=== PATIENT | male | born 1955 | race Caucasian/White ===

== ENCOUNTER 2018-12-14 14:11 | Inpatient (IN) | payer OTHER ==
[2018-12-14] MEDS ORDERED: NA CHLORIDE 0.9% 1,000 ML ONE (14:28)
[2018-12-14 14:52] LABS: Absolute Lymphocytes (CBC) 1.3 K/uL (0.7-4.9); Basophils % 0.4 % (0-1.3); Hematocrit 22.6 % (39.6-49.0); Lymphocytes % 15.9 % (15.3-44.8); MPV 8.5 fL (7.6-11.3); RBC Red Blood Cell Count 2.35 M/uL (4.33-5.43)
[2018-12-14] MEDS ORDERED: WATER FOR INJ,STERILE 20 ML ONE (15:12)
[2018-12-14] MEDS ORDERED: PANTOPRAZOLE 40 MG INJ ONE (15:12)
[2018-12-14] MEDS ORDERED: CEFTRIAXONE/SWI 1gm 1 GM/10 ML SYR ONE (15:12)
[2018-12-14] MEDS: PANTOPRAZOLE INJ 80 MG in NA CHLORIDE 0.9% 250 ML IV SCH (16:00)
--- NOTE | 2018-12-14 16:16 | EDPHYS ---
Physician Documentation [facility] Name: Baldemar Rossi Age: 63 yrs Sex: Male : 1955 Arrival Date: 12/14/2018 Time: 14:14 Bed 30 Private MD: ED Physician Jacquelyn Chaparro HPI: 12/14 16:13 This 63 yrs old Male presents to ER via Ambulatory with complaints of ma2 Black/Tarry Stools, Shortness Of Breath. 16:13 The patient has shortness of breath at rest. Onset: The symptoms/episode began/occurred ma2 gradually, 1 day(s) ago. Associated signs and symptoms: Pertinent negatives: productive cough, diaphoresis, fever, nausea, numbness in extremities. Severity of symptoms: At their worst the symptoms were mild in the emergency department the symptoms are unchanged. The patient has not experienced similar symptoms in the past. Historical: - Allergies: 14:22 No Known Allergies; la1 - PMHx: 14:22 None; la1 - Immunization history:: Adult Immunizations up to date. - Social history:: Smoking status: Patient/guardian denies using tobacco, Patient/guardian denies using alcohol, street drugs, The patient lives with family. - Ebola Screening: : No symptoms or risks identified at this time. - Family history:: not pertinent. ROS: 16:13 Constitutional: Negative for fever, chills, and weight loss. ma2 16:13 All other systems are negative. Exam: 16:13 Constitutional: This is a well developed, well nourished patient who is awake, alert, ma2 and in no acute distress. Neck: Trachea midline, no thyromegaly or masses palpated, and no cervical lymphadenopathy. Supple, full range of motion without nuchal rigidity, or vertebral point tenderness. No Meningismus. Chest/axilla: Normal chest wall appearance and motion. Nontender with no deformity. No lesions are appreciated. Cardiovascular: Regular rate and rhythm with a normal S1 and S2. No gallops, murmurs, or rubs. Normal PMI, no JVD. No pulse deficits. Respiratory: Lungs have equal breath sounds bilaterally, clear to auscultation and percussion. No rales, rhonchi or wheezes noted. No increased work of breathing, no retractions or nasal flaring. Abdomen/GI: Soft, non-tender, with normal bowel sounds. No distension or tympany. No guarding or rebound. No evidence of tenderness throughout. MS/ Extremity: Pulses equal, no cyanosis. Neurovascular intact. Full, normal range of motion. Vital Signs: 14:22 BP 158 / 100; Pulse 91; Resp 16; Temp 98.4; Pulse Ox 100% on R/A; Weight 64.86 kg; la1 Height 5 ft. 9 in. (175.26 cm); 15:47 BP 168 / 84; Pulse 78; Resp 17 S; Pulse Ox 100% on R/A; ca1 16:50 BP 157 / 78; Pulse 73; Resp 17 S; Pulse Ox 100% on R/A; ca1 17:52 BP 149 / 83; Pulse 84; Resp 17 S; Pulse Ox 100% on R/A; ca1 18:44 BP 138 / 69; Pulse 75; Resp 17 S; Pulse Ox 100% on R/A; ca1 20:17 BP 141 / 77; Pulse 77; Resp 16 S; Pulse Ox 100% on R/A; ca1 21:19 BP 146 / 79; Pulse 73; Resp 15 S; Temp 98.4(O); Pulse Ox 100% on R/A; ca1 14:22 Body Mass Index 21.12 (64.86 kg, 175.26 cm) la1 MDM: 14:26 Patient medically screened. ma2 16:13 Differential diagnosis: gi bleed, upper vs lower. Antibiotic administration: The hi2 patient is discharged and will get outpatient antibiotics. Data reviewed: vital signs, nurses notes. Counseling: I had a detailed discussion with the patient and/or guardian regarding: the historical points, exam findings, and any diagnostic results supporting the discharge/admit diagnosis, the presence of at least one elevated blood pressure reading (>120/80) during this emergency department visit, the need for outpatient follow up. ED course: discussed with dr. whyte and accepted by dr. de la cruz will admit to icu . 12/14 14:27 Order name: Basic Metabolic Panel hi2 12/14 14:27 Order name: CBC with Diff; Complete Time: 14:57 hi2 12/14 14:27 Order name: Creatinine for Radiology; Complete Time: 15:34 [facility] 12/14 14:27 Order name: Hepatic Function hi2 12/14 14:27 Order name: Lipase hi2 12/14 14:27 Order name: Occult Blood hi2 12/14 14:34 Order name: Type And Screen [facility] 12/14 15:27 Order name: Packed RBC Leukored [facility] 12/14 16:19 Order name: ABO/RH no charge [facility] 12/14 19:40 Order name: CT [facility] 12/14 20:04 Order name: Hemoglobin 12/14 20:04 Order name: Hematocrit 12/14 20:25 Order name: Hemoglobin [facility] 12/14 20:25 Order name: Hematocrit [facility] 12/14 14:27 Order name: IV Saline Lock; Complete Time: 14:46 hi2 12/14 14:27 Order name: Labs collected and sent; Complete Time: 14:46 [facility] 12/14 14:48 Order name: Labs - recollect needed; Complete Time: 15:05 bd Administered Medications: 14:46 Drug: NS 0.9% 1000 ml Route: IV; Rate: 1 bolus; Site: right antecubital; ca1 16:04 Follow up: Response: No adverse reaction; IV Status: Completed infusion ca1 15:25 Drug: Rocephin 1 grams Route: IV; Rate: calculated rate; Site: right antecubital; ca1 16:04 Follow up: Response: No adverse reaction; IV Status: Completed infusion ca1 15:25 Drug: Pantoprazole 80 mg Route: IVP; Site: right antecubital; ca1 16:04 Follow up: Response: No adverse reaction ca1 16:03 Drug: Pantoprazole 8 mg/hr Route: IV; Rate: 25 ml/hr; Site: right antecubital; ca1 17:20 Follow up: IV Status: Infusion continued upon admission ca1 Disposition: 16:15 Critical Care:. ma2 Disposition: 12/14/18 16:15 Hospitalization ordered by Petra De La Cruz for Inpatient Admission. Preliminary diagnosis is Gastrointestinal hemorrhage, unspecified. - Bed requested for Telemetry/MedSurg (Inpatient). - Status is Inpatient Admission. ca1 - Condition is Stable. - Problem is new. - Symptoms are unchanged. UTI on Admission? No Critical care time excluding procedures: 16:15 Critical care time: Bedside Care: 20 minutes, Consultation: 10 minutes, Family ma2 Intervention: 5 minutes. Total time: 35 minutes Signatures: Dispatcher [employer] Priyanka Rene Bib Coats RN RN la1 Clau Diez, RN RN cg Jacquelyn Chaparro MD MD ma2 Swati Hunter RN RN ca1 Corrections: (The following items were deleted from the chart) 18:47 16:15 Hospitalization Ordered by Petra De La Cruz MD for Inpatient Admission. Preliminary bd diagnosis is Gastrointestinal hemorrhage, unspecified. Bed requested for Intensive Care Unit. Status is Inpatient Admission. Condition is Critical. Problem is new. Symptoms are unchanged. UTI on Admission? No. ma2 21:01 18:47 12/14/2018 16:15 Hospitalization Ordered by Petra De La Cruz MD for Inpatient cg Admission. Preliminary diagnosis is Gastrointestinal hemorrhage, unspecified. Bed requested for [facility] ER HOLD. Status is Inpatient Admission. Condition is Critical. Problem is new. Symptoms are unchanged. UTI on Admission? No. bd 21:41 21:01 12/14/2018 16:15 Hospitalization Ordered by Petra De La Cruz MD for Inpatient ca1 Admission. Preliminary diagnosis is Gastrointestinal hemorrhage, unspecified. Bed requested for Telemetry/MedSurg (Inpatient). Status is Inpatient Admission. Condition is Stable. Problem is new. Symptoms are unchanged. UTI on Admission? No. cg
--- NOTE | 2018-12-14 16:16 | ER ---
Nurse's Notes [facility] Name: Baldemar Rossi Age: 63 yrs Sex: Male : 1955 Arrival Date: 12/14/2018 Time: 14:14 Bed 30 Private MD: Diagnosis: Gastrointestinal hemorrhage, unspecified Presentation: 12/14 14:21 Presenting complaint: Patient states: Dark tarry stools x 3 days, syncopal episode last la1 night with loss of urinary continence. Pt is daily drinker, averages about eight beers per day. Transition of care: patient was not received from another setting of care. Onset of symptoms was December 14, 2018. Risk Assessment: Do you want to hurt yourself or someone else? Patient reports no desire to harm self or others. Initial Sepsis Screen: Does the patient meet any 2 criteria? No. Patient's initial sepsis screen is negative. Does the patient have a suspected source of infection? No. Patient's initial sepsis screen is negative. Care prior to arrival: None. 14:21 Method Of Arrival: Ambulatory la1 14:21 Acuity: SKYE 2 la1 Triage Assessment: 14:54 Respiratory: ca1 14:54 Respiratory: Onset: The symptoms/episode began/occurred. ca1 Historical: - Allergies: 14:22 No Known Allergies; la1 - PMHx: 14:22 None; la1 - Immunization history:: Adult Immunizations up to date. - Social history:: Smoking status: Patient/guardian denies using tobacco, Patient/guardian denies using alcohol, street drugs, The patient lives with family. - Ebola Screening: : No symptoms or risks identified at this time. - Family history:: not pertinent. Screenin:40 Abuse screen: Denies threats or abuse. Denies injuries from another. Nutritional ca1 screening: No deficits noted. Tuberculosis screening: No symptoms or risk factors identified. Fall Risk IV access (20 points). Assessment: 14:40 General: Appears in no apparent distress. comfortable, Behavior is calm, cooperative, ca1 appropriate for age. Pain: Denies pain. Neuro: Level of Consciousness is awake, alert, obeys commands, Oriented to person, place, time, situation, Appropriate for age. Cardiovascular: Heart tones S1 S2 present Capillary refill < 3 seconds Patient's skin is warm and dry. Pulses are all present. Rhythm is regular. Respiratory: Reports shortness of breath just one time Airway is patent Respiratory effort is even, unlabored, Respiratory pattern is regular, symmetrical, Breath sounds are clear bilaterally. GI: Abdomen is flat, non-distended, Bowel sounds present X 4 quads. Abd is soft and non tender X 4 quads. Reports black tarry stools since 3 days ago. : No deficits noted. No signs and/or symptoms were reported regarding the genitourinary system. EENT: No deficits noted. No signs and/or symptoms were reported regarding the EENT system. Derm: Skin is intact, is healthy with good turgor, Skin is pink, warm \T\ dry. Musculoskeletal: Circulation, motion, and sensation intact. Capillary refill < 3 seconds, Range of motion: intact in all extremities. 15:47 Reassessment: Patient appears in no apparent distress at this time. Patient and/or ca1 family updated on plan of care and expected duration. Pain level reassessed. Patient is alert, oriented x 3, equal unlabored respirations, skin warm/dry/pink. Instructed on NPO. 16:50 Reassessment: Patient appears in no apparent distress at this time. Patient and/or ca1 family updated on plan of care and expected duration. Pain level reassessed. Patient is alert, oriented x 3, equal unlabored respirations, skin warm/dry/pink. 17:52 Reassessment: Patient appears in no apparent distress at this time. Patient and/or ca1 family updated on plan of care and expected duration. Pain level reassessed. Patient is alert, oriented x 3, equal unlabored respirations, skin warm/dry/pink. 18:44 Reassessment: Patient appears in no apparent distress at this time. Patient is alert, ca1 oriented x 3, equal unlabored respirations, skin warm/dry/pink. Awaiting room assignment. 19:43 Reassessment: Patient appears in no apparent distress at this time. Patient and/or ca1 family updated on plan of care and expected duration. Pain level reassessed. Patient is alert, oriented x 3, equal unlabored respirations, skin warm/dry/pink. 20:14 Reassessment: No ICU beds available. For re-evaluation with night hospitalist if pt can ca1 go to [facility] floor. H\T\H drawn and sent to lab per DR. Bridges's order. 21:19 Reassessment: Patient appears in no apparent distress at this time. Patient is alert, ca1 oriented x 3, equal unlabored respirations, skin warm/dry/pink. called report to ARTURO Corrigan. Vital Signs: 14:22 BP 158 / 100; Pulse 91; Resp 16; Temp 98.4; Pulse Ox 100% on R/A; Weight 64.86 kg; la1 Height 5 ft. 9 in. (175.26 cm); 15:47 BP 168 / 84; Pulse 78; Resp 17 S; Pulse Ox 100% on R/A; ca1 16:50 BP 157 / 78; Pulse 73; Resp 17 S; Pulse Ox 100% on R/A; ca1 17:52 BP 149 / 83; Pulse 84; Resp 17 S; Pulse Ox 100% on R/A; ca1 18:44 BP 138 / 69; Pulse 75; Resp 17 S; Pulse Ox 100% on R/A; ca1 20:17 BP 141 / 77; Pulse 77; Resp 16 S; Pulse Ox 100% on R/A; ca1 21:19 BP 146 / 79; Pulse 73; Resp 15 S; Temp 98.4(O); Pulse Ox 100% on R/A; ca1 14:22 Body Mass Index 21.12 (64.86 kg, 175.26 cm) la1 ED Course: 14:14 Patient arrived in ED. mr 14:22 Triage completed. la1 14:23 Arm band placed on right wrist. la1 14:25 Jacquelyn Chaparro MD is Attending Physician. ma2 14:27 Swati Hunter, ARTURO is Primary Nurse. ca1 14:40 Patient has correct armband on for positive identification. Placed in gown. Bed in low ca1 position. Call light in reach. Side rails up X 1. Pulse ox on. NIBP on. Warm blanket given. 14:46 No provider procedures requiring assistance completed. Initial lab(s) drawn, by me, ca1 sent to lab. Inserted saline lock: 20 gauge in right antecubital area, using aseptic technique. Blood collected. 15:05 Lab(s) recollected, by me, sent to lab. ca1 15:26 Inserted saline lock: 18 gauge in left forearm, using aseptic technique. Blood ca1 collected. 15:35 Repeat lab(s) drawn. by me, sent to lab. jp3 15:35 Type And Screen Sent. jp3 16:14 Petra De La Cruz MD is Hospitalizing Provider. ma2 17:20 Patient admitted, IV remains in place. ca1 20:12 Hemoglobin Sent. ca1 20:12 Hematocrit Sent. ca1 Administered Medications: 14:46 Drug: NS 0.9% 1000 ml Route: IV; Rate: 1 bolus; Site: right antecubital; ca1 16:04 Follow up: Response: No adverse reaction; IV Status: Completed infusion ca1 15:25 Drug: Rocephin 1 grams Route: IV; Rate: calculated rate; Site: right antecubital; ca1 16:04 Follow up: Response: No adverse reaction; IV Status: Completed infusion ca1 15:25 Drug: Pantoprazole 80 mg Route: IVP; Site: right antecubital; ca1 16:04 Follow up: Response: No adverse reaction ca1 16:03 Drug: Pantoprazole 8 mg/hr Route: IV; Rate: 25 ml/hr; Site: right antecubital; ca1 17:20 Follow up: IV Status: Infusion continued upon admission ca1 Outcome: 16:15 Decision to Hospitalize by Provider. ma2 21:20 Admitted to Med/surg accompanied by tech, via stretcher, room 217, on monitor, Report ca1 called to Meenu Hernandez RN 21:20 Condition: stable 21:20 Instructed on the need for admit. 21:41 Patient left the ED. ca1 Signatures: Mary Diaz Lee, RN RN la1 Jacquelyn Chaparro MD MD ma2 Gerardo Wen jp3 Swati Hunter RN RN ca1 Corrections: (The following items were deleted from the chart) 14:23 14:21 Presenting complaint: Patient states: Dark tarry stools x 3 days, syncopal la1 episode last night with loss of urinary continence. la1 18:44 15:47 Reassessment: Patient appears in no apparent distress at this time. Patient ca1 and/or family updated on plan of care and expected duration. Pain level reassessed. Patient is alert, oriented x 3, equal unlabored respirations, skin warm/dry/pink. ca1
[2018-12-14 18:02] LABS: ALT/SGPT 22 U/L (12-78); AST/SGOT 26 U/L (15-37); Albumin 3.4 g/dL (3.4-5.0); Alkaline Phosphatase 63 U/L (45-117); BUN Blood Urea Nitrogen 14 mg/dL (7-18); Bicarbonate 25 mmol/L (21-32); Bilirubin Direct 0.1 mg/dL (0-0.2); Bilirubin Total 0.5 mg/dL (0.2-1.0); Glucose Level 103 mg/dL (74-106); Lipase 106 U/L (73-393); Potassium 3.7 mmol/L (3.5-5.1); Protein, Total 6.6 g/dL (6.4-8.2); Sodium Level 138 mmol/L (136-145)
--- NOTE | 2018-12-14 18:22 | P.HP ---
Certification for Inpatient Patient admitted to: Inpatient With expected LOS: >2 Midnights Practitioner: I am a practitioner with admitting privileges, knowledge of patient current condition, hospital course, and medical plan of care. Services: Services provided to patient in accordance with Admission requirements found in Title 42 Section 412.3 of the Code of Federal Regulations Patient History Date of Service: 12/14/18 Primary Care Provider: None Reason for admission: Black tarry stools History of Present Illness: This is a 63-year-old male with no oral past medical history who presented to the emergency room with complaints of black tarry stools for the past 3 days and feeling pale. Patient at bedside, patient has not seen a physician since 1991 and has not been really diagnosed with any other medical problems. He does not take any medications at home. stated that for the past 3 days or so, he has been complaining of black story stools. He has also been looking pale. Yesterday he lost his balance and he fell and he hit his head. said that his eyes kind of rolled back and he urinated on himself. Patient says he does remember the falling but states that he could not get up because he could not really breathe. He laid there for a while, he felt better and that he was able to pick himself up. Initially, they thought that this is just gastroenteritis because his granddaughter has been sick with diarrhea. But because of the fall and him feeling worse, He then told his and his forced him to come to the emergency room. The also endorses that patient has been choking on his food a lot more recently. He does have a history of heavy alcohol use. He states he drinks about 8 beers daily and more than that on his states he has been doing this for most this life. He used to be and even heavier drinker up until a few years ago. The states that his last drink was about 1 day ago and he has had only about 9 years the past 3 days. In the ER, blood pressure was 158/100, heart rate of 91, respirations of 16, satting 100% on room air with a BMI of 21.12. His labs remarkable for a hemoglobin of 8. His other labs were fairly unremarkable. He received IV fluids, Rocephin and IV Protonix drip in the ER. Dr. sarath was contacted from the emergency room and will see the patient, per ER doc At the time of my exam, patient was alert oriented x3, in no acute distress and hemodynamically stable. Home medications list reviewed: Yes - Past Medical/Surgical History Has patient received pneumonia vaccine in the past: No Diabetic: No Past Medical History: Patient denies medical history -: Back fusion surgery - Social History Smoking Status: Former smoker Alcohol use: Yes Review of Systems 10-point ROS is otherwise unremarkable Physical Examination - Physical Exam General: Alert, In no apparent distress, Cachectic, Other (Appears older than stated age) HEENT: Atraumatic, PERRLA, Mucous membr. moist/pink, EOMI, Sclerae nonicteric Neck: Supple, 2+ carotid pulse no bruit, No LAD, Without JVD or thyroid abnormality Respiratory: Clear to auscultation bilaterally, Normal air movement Cardiovascular: Regular rate/rhythm, Normal S1 S2 Gastrointestinal: Normal bowel sounds, No tenderness Musculoskeletal: No tenderness Integumentary: No rashes Neurological: Normal gait, Normal speech, Normal strength at 5/5 x4 extr, Normal tone, Normal affect Lymphatics: No axilla or inguinal lymphadenopathy - Studies Laboratory Data (last 24 hrs) 12/14/18 14:41: Creatinine 0.82 12/14/18 14:41: WBC 8.1, Hgb 8.0 L, Hct 22.6 L, Plt Count 178 12/14/18 14:41: Sodium 138, Potassium 3.7, BUN 14, Creatinine 0.79, Glucose 103 , Total Bilirubin 0.5, AST 26, ALT 22, Alkaline Phosphatase 63, Lipase 106 Microbiology Data (last 24 hrs): 12/14/18 14:27 Stool Occult Blood - Final TAR LEVELER Assessment and Plan - Problems (Diagnosis) (1) GI bleeding Current Visit: Yes Status: Acute Plan: Patient with black and tarry stools, likely upper GI bleed. -GI consulted from the ER, awaiting recommendations -continue IV Protonix at this time -stool occult blood pending Qualifiers: GI bleed type/associated pathology: melena Qualified Code(s): K92.1 - Melena (2) Acute blood loss anemia Current Visit: Yes Status: Acute Plan: Hemoglobin 8 at this time -continue to monitor H&H, transfuse for less than 7 (3) Fall Current Visit: Yes Status: Acute Plan: Patient with a fall -states a he hit his head -no physical exam findings noted, will get CT scan to evaluate further Qualifiers: Encounter type: initial encounter Qualified Code(s): W19.XXXA - Unspecified fall, initial encounter (4) Dysphasia Current Visit: Yes Status: Acute Plan: Patient with worsening choking while eating for the past few months. -evaluate with bedside swallow prior to starting p.o. -he will still be NPO at this time though -may consider getting an MBS prior to discharge to evaluate further (5) Alcohol abuse Current Visit: No Status: Chronic Plan: -Frequent neuro checks -monitor for alcohol withdrawal symptoms -Ativan as needed for DT/withdrawal - Plan DVT prophylaxis: No chemical anticoagulation due to bleed GI prophylaxis: Protonix as above Diet: NPO Disposition: Admit to ICU, pending GI evaluation and workup - Advance Directives Does patient have a Living Will: No Does patient have a Durable POA for Healthcare: No Critical Care: Yes Time Spent Managing Pts Care (In Minutes): 55
--- NOTE | 2018-12-14 19:36 | RAD REPORT ---
EXAM DESCRIPTION: CT - Head Brain Wo Cont - 12/14/2018 7:08 pm CLINICAL HISTORY: Fall committed to move COMPARISON: None. TECHNIQUE: Axial 5 mm thick images of the head were obtained without IV contrast. All CT scans are performed using dose optimization technique as appropriate and may include automated exposure control or mA/KV adjustment according to patient size. FINDINGS: No intracranial hemorrhage, mass, edema or shift of mid-line structures. No acute infarcti on changes seen. No abnormal extra-axial fluid collections. Mild atrophy and chronic ischemic changes are present. Ventricles are in proportion. Mastoid air cells are not fully opacified. Pattern is symmetric and this is favored to be baseline fo r the patient rather than an acute mastoid finding. Visualized paranasal sinuses are clear. No globe or orbital content abnormality. No acute bony findings. IMPRESSION: Negative non-contrast CT head examination for acute finding.
[2018-12-14 20:20] LABS: Hematocrit 21.4 % (39.6-49.0)
[2018-12-14] MEDS ORDERED: LORazepam 2 MG/ML VIAL IV PRN (21:27)
[2018-12-14] MEDS ORDERED: ONDANSETRON 4 MG/2 ML VIAL IV PRN (21:27)
[2018-12-14 22:03] VITALS: BMI 19.5
[2018-12-14] MEDS ORDERED: INFLUENZA VACCINE (for 3y+) 0.5 ML DOSE IMVAC ONE (22:09)
[2018-12-14 22:23] LABS: Absolute Lymphocytes (CBC) 1.8 K/uL (0.7-4.9); Basophils % 0.4 % (0-1.3); Hematocrit 22.6 % (39.6-49.0); Lymphocytes % 22.1 % (15.3-44.8); MPV 8.7 fL (7.6-11.3)
[2018-12-14] MEDS: NA CHLORIDE 0.9% 1,000 ML IV SCH (22:31)
[2018-12-15] MEDS ORDERED: NA CHLORIDE 0.9% 250 ML ONE ×2 (00:46→13:31)
[2018-12-15] MEDS: PANTOPRAZOLE INJ 80 MG in NA CHLORIDE 0.9% 250 ML IV SCH ×3 (01:48→21:12)
[2018-12-15 06:37] LABS: ALT/SGPT 18 U/L (12-78); AST/SGOT 19 U/L (15-37); Albumin 2.8 g/dL (3.4-5.0); Alkaline Phosphatase 52 U/L (45-117); BUN Blood Urea Nitrogen 10 mg/dL (7-18); Bicarbonate 26 mmol/L (21-32); Bilirubin Total 0.9 mg/dL (0.2-1.0); Glucose Level 94 mg/dL (74-106); Magnesium 2.3 mg/dL (1.8-2.4); Phosphorus 2.1 mg/dL (2.5-4.9); Potassium 3.6 mmol/L (3.5-5.1); Protein, Total 5.6 g/dL (6.4-8.2); Sodium Level 142 mmol/L (136-145)
[2018-12-15 06:38] LABS: Absolute Lymphocytes (CBC) 1.2 K/uL (0.7-4.9); Basophils % 0.5 % (0-1.3); Hematocrit 22.7 % (39.6-49.0); Lymphocytes % 19.6 % (15.3-44.8); MPV 8.8 fL (7.6-11.3); RBC Red Blood Cell Count 2.44 M/uL (4.33-5.43)
[2018-12-15] MEDS: NA CHLORIDE 0.9% 1,000 ML IV SCH ×3 (07:27→21:12)
[2018-12-15] MEDS ORDERED: POTASSIUM PHOS IN 0.9 % NACL 15 MMOL/250 ML BAG IV ONE (08:00)
[2018-12-15] MEDS ORDERED: NA CHLORIDE 0.9% 250 ML IV SCH (09:00)
[2018-12-15 11:28] LABS: Absolute Lymphocytes (CBC) 1.2 K/uL (0.7-4.9); Basophils % 0.5 % (0-1.3); Hematocrit 23.3 % (39.6-49.0); Lymphocytes % 19.9 % (15.3-44.8); MPV 8.6 fL (7.6-11.3); RBC Red Blood Cell Count 2.46 M/uL (4.33-5.43)
[2018-12-15 12:14] LABS: Folic Acid, (Folate) > 20.0 ng/mL (3.1-17.5); Transferrin 190 mg/dL (200-360)
--- NOTE | 2018-12-15 16:57 | P.PN ---
Subjective Date of Service: 12/15/18 Primary Care Provider: None Chief Complaint: Black tarry stools Subjective: Improving Patient seen and examined at bedside. at bedside. Chart reviewed and case discussed with nursing staff. No acute events noted overnight Patient reports no complaints this morning Status post 1 unit, H&H she improved so well No bowel movements yet this morning Review of Systems 10-point ROS is otherwise unremarkable Physical Examination - Vital Signs Temperature: 98 F Blood Pressure: 130/64 Pulse: 72 Respirations: 20 Pulse Ox (%): 100 - Physical Exam General: Alert, In no apparent distress, Cachectic, Other (Elderly, looks older than stated age) HEENT: Atraumatic, PERRLA, EOMI Neck: Supple, JVD not distended Respiratory: Clear to auscultation bilaterally, Normal air movement Cardiovascular: Regular rate/rhythm, Normal S1 S2 Gastrointestinal: Normal bowel sounds, No tenderness Musculoskeletal: No tenderness Integumentary: No rashes Neurological: Normal speech, Normal tone, Normal affect Lymphatics: No axilla or inguinal lymphadenopathy - Studies Laboratory Data (last 24 hrs) 12/14/18 14:41: Sodium 138, Potassium 3.7, BUN 14, Creatinine 0.79, Glucose 103 , Total Bilirubin 0.5, AST 26, ALT 22, Alkaline Phosphatase 63, Lipase 106 Microbiology Data (last 24 hrs): 12/14/18 14:27 Stool Occult Blood - Final WAFER FABRICATION OPERATOR Assessment And Plan - Current Problems (Diagnosis) (1) GI bleeding Current Visit: Yes Status: Acute Plan: Patient with black and tarry stools, likely upper GI bleed. -GI consulted from the ER, awaiting recommendations -continue IV Protonix at this time -stool occult blood pending Qualifiers: GI bleed type/associated pathology: melena Qualified Code(s): K92.1 - Melena (2) Acute blood loss anemia Current Visit: Yes Status: Acute Plan: Hemoglobin 8 at this time -he did receive 1 unit. Hemoglobin to 8.1, will go ahead and transfuse 1 unit. continue to monitor H&H, transfuse for less than 7 (3) Fall Current Visit: Yes Status: Acute Plan: Patient with a fall -states a he hit his head -no physical exam findings noted, will get CT scan to evaluate further Qualifiers: Encounter type: initial encounter Qualified Code(s): W19.XXXA - Unspecified fall, initial encounter (4) Dysphasia Current Visit: Yes Status: Acute Plan: Patient with worsening choking while eating for the past few months. -evaluate with bedside swallow prior to starting p.o. -he will still be NPO at this time though -may consider getting an MBS prior to discharge to evaluate further (5) Alcohol abuse Current Visit: No Status: Chronic Plan: -Frequent neuro checks -monitor for alcohol withdrawal symptoms -Ativan as needed for DT/withdrawal - Plan DVT prophylaxis: No chemical anticoagulation due to bleed GI prophylaxis: Protonix as above Diet: NPO Disposition: pending GI evaluation and workup
[2018-12-15 19:29] LABS: Hematocrit 26.9 % (39.6-49.0)
[2018-12-16] MEDS: NA CHLORIDE 0.9% 1,000 ML IV SCH ×3 (05:12→23:16)
[2018-12-16 05:17] LABS: Basophils % 0.5 % (0-1.3); MPV 8.2 fL (7.6-11.3); RBC Red Blood Cell Count 2.73 M/uL (4.33-5.43)
[2018-12-16 05:38] LABS: ALT/SGPT 18 U/L (12-78); AST/SGOT 24 U/L (15-37); Albumin 2.9 g/dL (3.4-5.0); Alkaline Phosphatase 55 U/L (45-117); BUN Blood Urea Nitrogen 9 mg/dL (7-18); Bicarbonate 25 mmol/L (21-32); Bilirubin Total 1.4 mg/dL (0.2-1.0); Glucose Level 94 mg/dL (74-106); Phosphorus 2.5 mg/dL (2.5-4.9); Potassium 3.7 mmol/L (3.5-5.1); Protein, Total 5.5 g/dL (6.4-8.2); Sodium Level 143 mmol/L (136-145)
[2018-12-16] MEDS: PANTOPRAZOLE INJ 80 MG in NA CHLORIDE 0.9% 250 ML IV SCH ×2 (08:34→18:37)
[2018-12-16] MEDS ORDERED: POTASSIUM PHOS IN 0.9 % NACL 15 MMOL/250 ML BAG IV ONE (09:00)
[2018-12-16] MEDS ORDERED: MAGNESIUM CITRATE 300 ML BOT PO ONE (13:00)
[2018-12-16] MEDS: METOCLOPRAMIDE 10 MG/2mL INJ IV SCH ×2 (13:31→18:28)
--- NOTE | 2018-12-16 13:50 | P.PN ---
Subjective Date of Service: 12/16/18 Primary Care Provider: None Chief Complaint: Black tarry stools Patient seen and examined at bedside. at bedside. Chart reviewed and case discussed with nursing staff. No acute events noted overnight Patient reports no complaints this morning Status post 1 unit, H&H she improved so well No bowel movements yet this morning Review of Systems 10-point ROS is otherwise unremarkable Physical Examination - Vital Signs Temperature: 98.4 F Blood Pressure: 144/76 Pulse: 71 Respirations: 18 Pulse Ox (%): 100 - Physical Exam General: Alert, In no apparent distress, Oriented x3 HEENT: Atraumatic, PERRLA, EOMI Neck: Supple, JVD not distended Respiratory: Clear to auscultation bilaterally, Normal air movement Cardiovascular: Regular rate/rhythm, Normal S1 S2 Gastrointestinal: Normal bowel sounds, No tenderness Musculoskeletal: No tenderness Integumentary: No rashes Neurological: Normal speech, Normal tone, Normal affect Lymphatics: No axilla or inguinal lymphadenopathy Assessment And Plan - Current Problems (Diagnosis) (1) GI bleeding Current Visit: Yes Status: Acute Plan: Patient with black and tarry stools, likely upper GI bleed. -GI consulted from the ER, pending scope tomorrow. -continue IV Protonix at this time -stool occult blood pending Qualifiers: GI bleed type/associated pathology: melena Qualified Code(s): K92.1 - Melena (2) Acute blood loss anemia Current Visit: Yes Status: Acute Plan: Hemoglobin 8 at this time -s/p 2 units prbcs. continue to monitor H&H, transfuse for less than 7 (3) Fall Current Visit: Yes Status: Acute Plan: Patient with a fall -states a he hit his head -no physical exam findings noted, will get CT scan to evaluate further Qualifiers: Encounter type: initial encounter Qualified Code(s): W19.XXXA - Unspecified fall, initial encounter (4) Dysphasia Current Visit: Yes Status: Acute Plan: Patient with worsening choking while eating for the past few months. -evaluate with bedside swallow prior to starting p.o. -he will still be NPO at this time though -may consider getting an MBS prior to discharge to evaluate further (5) Alcohol abuse Current Visit: No Status: Chronic Plan: -Frequent neuro checks -monitor for alcohol withdrawal symptoms -Ativan as needed for DT/withdrawal - Plan DVT prophylaxis: No chemical anticoagulation due to bleed GI prophylaxis: Protonix as above Diet: NPO Disposition: pending GI workup and scope tomorrow.
[2018-12-16] MEDS ORDERED: GOLYTELY 4000 ML PO ONE (14:00)
[2018-12-17] MEDS: METOCLOPRAMIDE 10 MG/2mL INJ IV SCH (00:42)
[2018-12-17] MEDS: PANTOPRAZOLE INJ 80 MG in NA CHLORIDE 0.9% 250 ML IV SCH ×2 (03:31→17:18)
[2018-12-17 05:19] LABS: Absolute Lymphocytes (CBC) 0.9 K/uL (0.7-4.9); Basophils % 0.8 % (0-1.3); Hematocrit 27.9 % (39.6-49.0); MPV 8.5 fL (7.6-11.3); RBC Red Blood Cell Count 2.94 M/uL (4.33-5.43)
[2018-12-17 05:39] LABS: ALT/SGPT 21 U/L (12-78); AST/SGOT 24 U/L (15-37); Albumin 3.1 g/dL (3.4-5.0); Alkaline Phosphatase 60 U/L (45-117); BUN Blood Urea Nitrogen 6 mg/dL (7-18); Bicarbonate 24 mmol/L (21-32); Bilirubin Total 0.9 mg/dL (0.2-1.0); Glucose Level 89 mg/dL (74-106); Potassium 3.5 mmol/L (3.5-5.1); Sodium Level 142 mmol/L (136-145)
[2018-12-17] MEDS ORDERED: KCL 20 MEQ/100 mL IVPB 20 MEQ/100 ML BAG IV SCH (08:55)
--- NOTE | 2018-12-17 09:36 | P.PN ---
Subjective Date of Service: 12/17/18 Primary Care Provider: None Chief Complaint: Black tarry stools Subjective: Improving Patient seen and examined at bedside. at bedside. Chart reviewed and case discussed with nursing staff. No acute events noted overnight Patient reports no complaints this morning Status post 1 unit, H&H improved so far bowel prepped, no blood noted Review of Systems 10-point ROS is otherwise unremarkable Physical Examination - Vital Signs Temperature: 98.3 F Blood Pressure: 165/79 Pulse: 65 Respirations: 15 Pulse Ox (%): 98 - Physical Exam General: Alert, In no apparent distress HEENT: Atraumatic, PERRLA, EOMI Neck: Supple, JVD not distended Respiratory: Clear to auscultation bilaterally, Normal air movement Cardiovascular: Regular rate/rhythm, Normal S1 S2 Gastrointestinal: Normal bowel sounds, No tenderness Musculoskeletal: No tenderness Integumentary: No rashes Neurological: Normal speech, Normal tone, Normal affect Lymphatics: No axilla or inguinal lymphadenopathy Assessment And Plan - Current Problems (Diagnosis) (1) GI bleeding Current Visit: Yes Status: Acute Plan: Patient with black and tarry stools, likely upper GI bleed. -GI consulted from the ER, pending scope today -continue IV Protonix at this time Qualifiers: GI bleed type/associated pathology: melena Qualified Code(s): K92.1 - Melena (2) Acute blood loss anemia Current Visit: Yes Status: Acute Plan: Hemoglobin 8 at this time -s/p 2 units prbcs. continue to monitor H&H, transfuse for less than 7 (3) Fall Current Visit: Yes Status: Acute Plan: Patient with a fall -states he hit his head Qualifiers: Encounter type: initial encounter Qualified Code(s): W19.XXXA - Unspecified fall, initial encounter (4) Dysphasia Current Visit: Yes Status: Acute Plan: Patient with worsening choking while eating for the past few months. -evaluate with bedside swallow prior to starting p.o. -he will still be NPO at this time though -may consider getting an MBS prior to discharge to evaluate further (5) Alcohol abuse Current Visit: No Status: Chronic Plan: -Frequent neuro checks -monitor for alcohol withdrawal symptoms -Ativan as needed for DT/withdrawal - Plan DVT prophylaxis: No chemical anticoagulation due to bleed GI prophylaxis: Protonix as above Diet: NPO Disposition: pending GI workup and scope today.
[2018-12-17 10:11] LABS: Blood Morphology Comment NOT SEEN (NOT SEEN); Platelet Estimate ADEQ
[2018-12-17] MEDS ORDERED: Ringers Lactate 1,000 ML IV ONE (13:18)
[2018-12-17] MEDS ORDERED: LIDOCAINE 1% MPF 2 ML AMPULE ONE (14:12)
[2018-12-17] MEDS ORDERED: PROPOFOL 200 MG/20 ML VIAL IV ONE (14:12)
[2018-12-17] MEDS ORDERED: EPINEPHRINE/PF 1 MG/ML AMP ONE (14:23)
--- NOTE | 2018-12-17 14:50 | ENDO RPT ---
[address], [address] EGD PROCEDURE REPORT EXAM DATE: 12/17/2018 PATIENT NAME: Baldemar Rossi MR#: [id number] BIRTHDATE: 1955 ATTENDING: Fabrice Robison Dr STATUS: inpatient STEAM FITTER HELPER: Geno Miranda, Richard Zepeda RN, and Emilee Diaz RN INDICATIONS: The patient is a 63 yr old Male here for an EGD due to hematemesis, upper G.I. bleeding, anemia, and nausea PROCEDURE PERFORMED: EGD with biopsy MEDICATIONS: Per Anesthesia. TOPICAL ANESTHETIC: none CONSENT: The patient understands the risks and benefits of the procedure and understands that these risks include, but are not limited to: sedation, allergic reaction, infection, perforation and/or bleeding. Alternative means of evaluation and treatment include, among others: physical exam, x-rays, and/or surgical intervention. The patient elects to proceed with this endoscopic procedure. DESCRIPTION OF PROCEDURE: During intra-op preparation period all mechanical medical equipment was checked for proper function. Hand hygiene and appropriate measures for infection prevention was taken. Procedure, possible complications, and alternatives including but not limited to the possibility of bleeding, perforation, tear, infection, sepsis, need for surgery, need for blood transfusion, and anesthesia related complications were explained to the patient. After the risks, benefits and alternatives of the procedure were thoroughly explained, Informed consent was verified, confirmed and timeout was successfully executed by the treatment team. The patient was placed in the left lateral position. The patient was anesthetized with topical anesthesia. Through the anesthetized oropharyngeal area, the scope was passed without any difficulty. The Pentax EG-2990i ([id number]) endoscope was introduced through the mouth and advanced to the second portion of the duodenum. Retroflexed views revealed a small hiatal hernia. The gastroscope was then slowly withdrawn and removed. A small hiatal hernia was found. Moderate atrophic gastritis was found in the total stomach. Multiple biopsies were obtained and sent to pathology. Multiple (2) erosions were found in the antrum. Duodenitis was found in the bulb of the duodenum. Multiple (2) ulcers were found in the bulb of the duodenum. ADVERSE EVENTS: There were no complications. IMPRESSIONS: 1. Small hiatal hernia 2. Moderate atrophic gastritis in the total stomach, s/p biopsies 3. Multiple (2) erosions in the antrum 4. Duodenitis in the bulb of the duodenum duodenum RECOMMENDATIONS: 1. await biopsy results 2. acid suppression therapy REPEAT EXAM: Fabrice Robison Dr eSigned: Fabrice Robison Dr 12/17/2018 2:49 PM cc: CPT CODES: ICD9 CODES: PATIENT NAME: Baldemar Rossi MR#: [id number]
--- NOTE | 2018-12-17 14:52 | ENDO RPT ---
[address], [address] EGD PROCEDURE REPORT EXAM DATE: 12/17/2018 PATIENT NAME: Baldemar Rossi MR#: [id number] BIRTHDATE: 1955 ATTENDING: Fabrice Robison Dr STATUS: inpatient CRM BUSINESS ANALYST: Geno Miranda, Richard Zepeda RN, and Emilee Diaz RN INDICATIONS: The patient is a 63 yr old Male here for an EGD due to melenic bleeding, upper G.I. bleeding, anemia, and nausea PROCEDURE PERFORMED: EGD with biopsy MEDICATIONS: Per Anesthesia. TOPICAL ANESTHETIC: none CONSENT: The patient understands the risks and benefits of the procedure and understands that these risks include, but are not limited to: sedation, allergic reaction, infection, perforation and/or bleeding. Alternative means of evaluation and treatment include, among others: physical exam, x-rays, and/or surgical intervention. The patient elects to proceed with this endoscopic procedure. DESCRIPTION OF PROCEDURE: During intra-op preparation period all mechanical medical equipment was checked for proper function. Hand hygiene and appropriate measures for infection prevention was taken. Procedure, possible complications, and alternatives including but not limited to the possibility of bleeding, perforation, tear, infection, sepsis, need for surgery, need for blood transfusion, and anesthesia related complications were explained to the patient. After the risks, benefits and alternatives of the procedure were thoroughly explained, Informed consent was verified, confirmed and timeout was successfully executed by the treatment team. The patient was placed in the left lateral position. The patient was anesthetized with topical anesthesia. Through the anesthetized oropharyngeal area, the scope was passed without any difficulty. The Pentax EG-2990i ([id number]) endoscope was introduced through the mouth and advanced to the second portion of the duodenum. Retroflexed views revealed a small hiatal hernia. The gastroscope was then slowly withdrawn and removed. A small hiatal hernia was found. Moderate atrophic gastritis was found in the total stomach. Multiple biopsies were obtained and sent to pathology. Multiple (2) erosions were found in the antrum. Duodenitis was found in the bulb of the duodenum. Multiple (2) ulcers were found in the bulb of the duodenum. ADVERSE EVENTS: There were no complications. IMPRESSIONS: 1. Small hiatal hernia 2. Moderate atrophic gastritis in the total stomach, s/p biopsies 3. Multiple (2) erosions in the antrum 4. Duodenitis in the bulb of the duodenum duodenum RECOMMENDATIONS: 1. await biopsy results 2. acid suppression therapy REPEAT EXAM: Fabrice Robison Dr eSigned: Fabrice Robison Dr 12/17/2018 2:52 PM Revised: 12/17/2018 2:52 PM cc: CPT CODES: ICD9 CODES: PATIENT NAME: Baldemar Rossi MR#: [id number]
[2018-12-17] MEDS ORDERED: GLYCOPYRROLATE 0.2 MG/ML SYR ONE (15:05)
--- NOTE | 2018-12-17 15:35 | ENDO RPT ---
[address], [address] COLONOSCOPY PROCEDURE REPORT EXAM DATE: 12/17/2018 PATIENT NAME: Baldemar Rossi MR #: [id number] BIRTHDATE: 1955 ATTENDING: Fabrice Robison Dr STATUS: inpatient SUPERVISOR PAINT ROLLER COVERS: Geno Miranda, Emilee Diaz RN, and Richard Zepeda RN INDICATIONS: The patient is a 63 yr old Male here for a colonoscopy due to hematochezia and anemia PROCEDURE PERFORMED: Colonoscopy MEDICATIONS: Per Anesthesia. ESTIMATED BLOOD LOSS: None CONSENT: The patient understands the risks and benefits of the procedure and understands that these risks include, but are not limited to: sedation, allergic reaction, infection, perforation and/or bleeding. Alternative means of evaluation and treatment include, among others: physical exam, x-rays, and/or surgical intervention. The patient elects to proceed with this endoscopic procedure. DESCRIPTION OF PROCEDURE: During intra-op preparation period all mechanical medical equipment was checked for proper function. Hand hygiene and appropriate measures for infection prevention was taken. Procedure, possible complications, alternatives including, but not limited to possibility of bleeding, perforation, tear, infection, sepsis, need for surgery, need for blood transfusion, were explained to the patient. After the risks, benefits and alternatives of the procedure were thoroughly explained, Informed consent was verified, confirmed and timeout was successfully executed by the treatment team. The patient was placed in the left lateral position. A digital rectal exam was performed and revealed several skin tags and A digital rectal exam was performed and revealed external hemorrhoids. After appropriate level of anesthesia, the scope was passed. The EG-2990i ([id number]) and EC-[id number] ([id number]) endoscope was introduced through the anus and advanced to the terminal ileum which was intubated for a short distance. The quality of the prep was fair. The instrument was then slowly withdrawn as the colon was fully examined. Scope withdrawal time was 9 minutes. COLON FINDINGS: Maroon blood throughout the colon, not in the terminal ileum. Internal and external hemorrhoids were found. Retroflexed views revealed medium hemorrhoids. The scope was then completely withdrawn from the patient and the procedure terminated. ADVERSE EVENTS: There were no complications. IMPRESSIONS: 1. Maroon blood throughout the colon, not in the terminal ileum. No diverticula noted; possible colonic AVM(s) bleed or other 2. Internal and external hemorrhoids 3. Intubation to terminal ileum RECOMMENDATIONS: 1. tagged RBC / bleeding scan 3. consider repeat colonoscopy in 1-3 days RECALL: Return in 1-2 day(s) for Colonoscopy. Fabrice Robison Dr eSigned: Fabrice Robison Dr 12/17/2018 3:35 PM cc: CPT CODES: ICD9 CODES: 1. 455.9 Residual hemorrhoidal skin tags 2. 455.5 External hemorrhoids with other complication PATIENT NAME: Baldemar Rossi MR#: [id number]
[2018-12-17] MEDS: NA CHLORIDE 0.9% 1,000 ML IV SCH (17:18)
[2018-12-18] MEDS: PANTOPRAZOLE INJ 80 MG in NA CHLORIDE 0.9% 250 ML IV SCH ×3 (01:13→21:40)
[2018-12-18] MEDS: NA CHLORIDE 0.9% 1,000 ML IV SCH ×3 (04:18→15:56)
[2018-12-18] MEDS ORDERED: HEPARIN 500 UNIT/5 ML SYR IV ONE (07:11)
[2018-12-18 07:30] LABS: BUN Blood Urea Nitrogen 4 mg/dL (7-18); Bicarbonate 26 mmol/L (21-32); Glucose Level 95 mg/dL (74-106); Potassium 3.7 mmol/L (3.5-5.1); Sodium Level 144 mmol/L (136-145)
[2018-12-18] MEDS ORDERED: POTASSIUM 25 MEQ EFFERV TAB PO ONE (09:00)
--- NOTE | 2018-12-18 10:54 | RAD REPORT ---
EXAM DESCRIPTION: NM - GI Blood Loss Imaging - 12/18/2018 9:14 am CLINICAL HISTORY: occult GI bleeding COMPARISON: No comparisons FINDINGS: The patient was administered 26.8 millicuries technetium labeled RBCs. Dynamic imaging of the abdomen and pelvis was performed. Lateral projections were also obtained. There is no evidence of active GI bleeding during the duration of the examination. IMPRESSION: No evidence of active GI bleeding during the examination.
--- NOTE | 2018-12-18 13:03 | P.PN ---
Subjective Date of Service: 12/18/18 Primary Care Provider: None Chief Complaint: Black tarry stools Subjective: No C/O voiced, Improving Patient seen and examined at bedside. at bedside. Chart reviewed and case discussed with nursing staff. No acute events noted overnight Patient reports no complaints this morning Status post 1 unit, H&H stable Patient status post endoscopy and colonoscopy. GI would like to repeat colonoscopy tomorrow Review of Systems 10-point ROS is otherwise unremarkable Physical Examination - Vital Signs Temperature: 97.6 F Blood Pressure: 126/70 Pulse: 61 Respirations: 16 Pulse Ox (%): 100 - Physical Exam General: Alert, In no apparent distress HEENT: Atraumatic, PERRLA, EOMI Neck: Supple, JVD not distended Respiratory: Clear to auscultation bilaterally, Normal air movement Cardiovascular: Regular rate/rhythm, Normal S1 S2 Gastrointestinal: Normal bowel sounds, No tenderness Musculoskeletal: No tenderness Integumentary: No rashes Neurological: Normal speech, Normal tone, Normal affect Lymphatics: No axilla or inguinal lymphadenopathy Assessment And Plan - Current Problems (Diagnosis) (1) GI bleeding Current Visit: Yes Status: Acute Plan: Patient with black and tarry stools, likely upper GI bleed. -GI consulted, recommendations appreciated -continue IV Protonix at this time -repeat colonoscopy tomorrow Qualifiers: GI bleed type/associated pathology: melena Qualified Code(s): K92.1 - Melena (2) Acute blood loss anemia Current Visit: Yes Status: Acute Plan: Hemoglobin 8 at this time -s/p 2 units prbcs. continue to monitor H&H, transfuse for less than 7 (3) Fall Current Visit: Yes Status: Acute Plan: Patient with a fall -states he hit his head Qualifiers: Encounter type: initial encounter Qualified Code(s): W19.XXXA - Unspecified fall, initial encounter (4) Dysphasia Current Visit: Yes Status: Acute Plan: Patient with worsening choking while eating for the past few months. -evaluate with bedside swallow prior to starting p.o. -he will still be NPO at this time though -may consider getting an MBS prior to discharge to evaluate further (5) Alcohol abuse Current Visit: No Status: Chronic Plan: -Frequent neuro checks -monitor for alcohol withdrawal symptoms -Ativan as needed for DT/withdrawal - Plan DVT prophylaxis: No chemical anticoagulation due to bleed GI prophylaxis: Protonix as above Diet: NPO Disposition: pending re-scope tomorrow. Continue bowel prep tonight
[2018-12-18] MEDS ORDERED: GOLYTELY 4000 ML PO SCH (18:00)
[2018-12-19] MEDS: NA CHLORIDE 0.9% 1,000 ML IV SCH ×3 (00:28→23:39)
[2018-12-19 04:50] LABS: Absolute Lymphocytes (CBC) 1.3 K/uL (0.7-4.9); Basophils % 0.8 % (0-1.3); Lymphocytes % 22.1 % (15.3-44.8); MPV 8.1 fL (7.6-11.3); RBC Red Blood Cell Count 3.17 M/uL (4.33-5.43)
[2018-12-19 05:05] LABS: BUN Blood Urea Nitrogen 4 mg/dL (7-18); Bicarbonate 26 mmol/L (21-32); Glucose Level 87 mg/dL (74-106); Potassium 3.5 mmol/L (3.5-5.1); Sodium Level 143 mmol/L (136-145)
[2018-12-19 05:06] LABS: Magnesium 2.1 mg/dL (1.8-2.4); Phosphorus 2.7 mg/dL (2.5-4.9)
[2018-12-19] MEDS: PANTOPRAZOLE INJ 80 MG in NA CHLORIDE 0.9% 250 ML IV SCH ×3 (05:41→16:53)
[2018-12-19] MEDS ORDERED: KCL 20 MEQ/100 mL IVPB 20 MEQ/100 ML BAG IV SCH (09:00)
[2018-12-19] MEDS ORDERED: Ringers Lactate 1,000 ML IV ONE (11:03)
[2018-12-19] MEDS ORDERED: PROPOFOL 200 MG/20 ML VIAL IV ONE (11:11)
[2018-12-19] MEDS ORDERED: LIDOCAINE 1% MPF 5 ML VIAL ONE (11:11)
--- NOTE | 2018-12-19 11:31 | P.PN ---
Subjective Date of Service: 12/19/18 Primary Care Provider: None Chief Complaint: Black tarry stools Subjective: No C/O voiced, Improving Patient seen and examined at bedside. at bedside. Chart reviewed and case discussed with nursing staff. No acute events noted overnight Patient reports no complaints this morning Status post 1 unit, H&H stable Patient status post endoscopy and colonoscopy. GI would like to repeat colonoscopy today, pending Review of Systems 10-point ROS is otherwise unremarkable Physical Examination - Vital Signs Temperature: 99.1 F Blood Pressure: 157/79 Pulse: 54 Respirations: 18 Pulse Ox (%): 100 - Physical Exam General: Alert, In no apparent distress HEENT: Atraumatic, PERRLA, EOMI Neck: Supple, JVD not distended Respiratory: Clear to auscultation bilaterally, Normal air movement Cardiovascular: Regular rate/rhythm, Normal S1 S2 Gastrointestinal: Normal bowel sounds, No tenderness Musculoskeletal: No tenderness Integumentary: No rashes Neurological: Normal speech, Normal tone, Normal affect Lymphatics: No axilla or inguinal lymphadenopathy Assessment And Plan - Current Problems (Diagnosis) (1) GI bleeding Current Visit: Yes Status: Acute Plan: Patient with black and tarry stools, likely upper GI bleed. -GI consulted, recommendations appreciated -continue IV Protonix at this time -repeat colonoscopy today Qualifiers: GI bleed type/associated pathology: melena Qualified Code(s): K92.1 - Melena (2) Acute blood loss anemia Current Visit: Yes Status: Acute Plan: Hemoglobin 8 at this time -s/p 2 units prbcs. continue to monitor H&H, transfuse for less than 7 (3) Fall Current Visit: Yes Status: Acute Plan: Patient with a fall -states he hit his head Qualifiers: Encounter type: initial encounter Qualified Code(s): W19.XXXA - Unspecified fall, initial encounter (4) Dysphasia Current Visit: Yes Status: Acute Plan: Patient with worsening choking while eating for the past few months. -evaluate with bedside swallow prior to starting p.o. -he will still be NPO at this time though -may consider getting an MBS prior to discharge to evaluate further (5) Alcohol abuse Current Visit: No Status: Chronic Plan: -Frequent neuro checks -monitor for alcohol withdrawal symptoms -Ativan as needed for DT/withdrawal - Plan DVT prophylaxis: No chemical anticoagulation due to bleed GI prophylaxis: Protonix as above Diet: NPO Disposition: pending re-scope today.
--- NOTE | 2018-12-19 17:20 | RAD REPORT ---
EXAM DESCRIPTION: RAD - Small Bowel Series - 12/19/2018 4:33 pm CLINICAL HISTORY: GI bleed COMPARISON: GI bleeding study December 18 FINDINGS: Medical Records Manager film shows a nonspecific bowel gas pattern. No obstruction or free air. No suspiciou s calcifications. Gastric size and mucosal fold pattern are normal. No delay in transit of contrast into the small mike l. Small bowel is normal in diameter with no mucosal fold thickening. No intrinsic or extrinsic mass identifiable. Terminal ileum has normal appearance. Transit time to the colon is 2 hours, upper alex l. IMPRESSION: Normal small bowel series.
[2018-12-19 21:19] VITALS: O2SAT 99
[2018-12-20] MEDS: PANTOPRAZOLE INJ 80 MG in NA CHLORIDE 0.9% 250 ML IV SCH (02:10)
[2018-12-20 04:58] LABS: BUN Blood Urea Nitrogen 3 mg/dL (7-18); Bicarbonate 30 mmol/L (21-32); Glucose Level 89 mg/dL (74-106); Potassium 3.3 mmol/L (3.5-5.1); Sodium Level 143 mmol/L (136-145)
[2018-12-20 06:36] VITALS: TEMP 97.8
--- NOTE | 2018-12-20 08:07 | RAD REPORT ---
EXAM DESCRIPTION: NM - Bowel Imaging [place] - 12/20/2018 7:43 am CLINICAL HISTORY: Unexplained GI bleed COMPARISON: None. TECHNIQUE: The patient was administered a 10.8 millicuries Tc 99 m pertechnetate. Dynamic imaging wa s performed over 1 minute. Imaging continued for 1 hour with static images obtained every 2 minutes. FINDINGS: Normal physiologic activity is seen in the stomach. There is normal physiologic accumulati on of the radiopharmaceutical in the urinary bladder. No abnormal activity is seen that would indicate a Meckel's diverticulum or other focus of ectopic ga stric mucosa. IMPRESSION: Normal Meckel's scan.
[2018-12-20] MEDS ORDERED: POTASSIUM CL SA 10 MEQ TAB PO ONE (09:00)
[2018-12-20 09:55] VITALS: BP 174/81
--- NOTE | 2018-12-20 15:27 | P.DS ---
Admission Date: 12/14/18 Discharge Date: 12/20/18 Primary Care Provider: None Disposition: ROUTINE DISCHARGE Discharge Condition: GOOD Reason for Admission: Black tarry stools Consultations: Gastroenterology - Problems (1) GI bleeding Status: Acute Qualifiers: GI bleed type/associated pathology: melena Qualified Code(s): K92.1 - Melena (2) Acute blood loss anemia Status: Acute (3) Fall Status: Acute Qualifiers: Encounter type: initial encounter Qualified Code(s): W19.XXXA - Unspecified fall, initial encounter (4) Dysphasia Status: Acute (5) Alcohol abuse Status: Chronic Brief History of Present Illness: This is a 63-year-old male with no oral past medical history who presented to the emergency room with complaints of black tarry stools for the past 3 days and feeling pale. Patient at bedside, patient has not seen a physician since 1991 and has not been really diagnosed with any other medical problems. He does not take any medications at home. stated that for the past 3 days or so, he has been complaining of black story stools. He has also been looking pale. Yesterday he lost his balance and he fell and he hit his head. said that his eyes kind of rolled back and he urinated on himself. Patient says he does remember the falling but states that he could not get up because he could not really breathe. He laid there for a while, he felt better and that he was able to pick himself up. Initially, they thought that this is just gastroenteritis because his granddaughter has been sick with diarrhea. But because of the fall and him feeling worse, He then told his and his forced him to come to the emergency room. The also endorses that patient has been choking on his food a lot more recently. He does have a history of heavy alcohol use. He states he drinks about 8 beers daily and more than that on his states he has been doing this for most this life. He used to be and even heavier drinker up until a few years ago. The states that his last drink was about 1 day ago and he has had only about 9 years the past 3 days. In the ER, blood pressure was 158/100, heart rate of 91, respirations of 16, satting 100% on room air with a BMI of 21.12. His labs remarkable for a hemoglobin of 8. His other labs were fairly unremarkable. He received IV fluids, Rocephin and IV Protonix drip in the ER. Dr. robison was contacted from the emergency room and will see the patient, per ER doc At the time of my exam, patient was alert oriented x3, in no acute distress and hemodynamically stable. Hospital Course: Patient was admitted and bleed. GI was consulted. He was started on IV Protonix. He underwent colonoscopy EGD. EGD was with esophagitis. Colonoscopy was also repeated prior to pick did not have any further bloody stools. throughout the stay. He did receive 2 units of PRBCs throughout this stay for his acute blood loss anemia. His H&H did remain stable after the transfusion. Patient otherwise did well throughout the stay. Prior to discharge, he was alert oriented x3, symptom-free in no acute distress, tolerating an oral diet without any complaints of any dysphasia at this time. He was then cleared for discharge by the specialists. His diagnoses and treatment plan explained, all questions were answered and he verbalized understanding. He was then discharged home in a safe and stable manner. He will follow up with GI as an outpatient for further pill cam testing as well as biopsy results. Vital Signs/Physical Exam: Temp Pulse Resp BP Pulse Ox 97.8 F 60 18 174/81 H 99 12/20/18 08:00 12/20/18 08:00 12/20/18 08:00 12/20/18 08:00 12/20/18 08:00 General: Alert, In no apparent distress, Oriented x3 HEENT: Atraumatic, PERRLA, EOMI Neck: Supple, JVD not distended Respiratory: Clear to auscultation bilaterally, Normal air movement Cardiovascular: Regular rate/rhythm, Normal S1 S2 Gastrointestinal: Normal bowel sounds, No tenderness Musculoskeletal: No tenderness Integumentary: No rashes Neurological: Normal speech, Normal tone, Normal affect Lymphatics: No axilla or inguinal lymphadenopathy Laboratory Data at Discharge: WBC 6.1 K/uL (4.3-10.9) 12/19/18 04:23 Hgb 10.4 g/dL (13.6-17.9) L 12/19/18 04:23 Hct 30.0 % (39.6-49.0) L 12/19/18 04:23 Plt Count 230 K/uL (152-406) D 12/19/18 04:23 Sodium 143 mmol/L (136-145) 12/20/18 04:17 Potassium 3.3 mmol/L (3.5-5.1) L 12/20/18 04:17 BUN 3 mg/dL (7-18) L 12/20/18 04:17 Creatinine 0.79 mg/dL (0.55-1.3) 12/20/18 04:17 Glucose 89 mg/dL (74-106) 12/20/18 04:17 Phosphorus 2.7 mg/dL (2.5-4.9) 12/19/18 04:23 Magnesium 2.1 mg/dL (1.8-2.4) 12/19/18 04:23 Total Bilirubin 0.9 mg/dL (0.2-1.0) 12/17/18 04:31 AST 24 U/L (15-37) 12/17/18 04:31 ALT 21 U/L (12-78) 12/17/18 04:31 Alkaline Phosphatase 60 U/L (45-117) 12/17/18 04:31 Lipase 106 U/L (73-393) 12/14/18 14:41 Home Medications: Pantoprazole [Protonix Tab] 40 mg PO DAILY #30 tab 12/18/18 Sucralfate [Carafate] 1 gm PO BID #30 tablet 12/18/18 New Medications: Pantoprazole [Protonix Tab] 40 mg PO DAILY #30 tab Sucralfate [Carafate] 1 gm PO BID #30 tablet Patient Discharge Instructions: Please follow up with your primary care physcian in 2-3 days. Please follow up with GI - Dr. Perez in 2-3 days. information provided to you. Return to the ER for worsening symptoms. Diet: Soft, as tolerated. [place] Activity: Ad natalie Followup: Fabrice Robison MD [ASSOCIATE-ACTIVE - CAN ADMIT] - 2-3 Days (Please call to make an appointment. ) Time spent managing pt's care (in minutes): 55
== END 2018-12-20 11:50 | disposition home or self-care (01) | DRG 811 ==
LOC: ER 14:11 → ERHOLD 18:09 → 2ND 21:22
PROVIDERS: ADMIT Family Medicine; ATTEND Family Medicine
PROC: 30233N1 Transfusion of Nonautologous Red Blood Cells into Peripheral Vein, Percutaneous Approach (ICD-10-PCS; principal; 2018-12-15)
PROC: 0DB68ZX Excision of Stomach, Via Natural or Artificial Opening Endoscopic, Diagnostic (ICD-10-PCS; 2018-12-17)
PROC: 0DJD8ZZ Inspection of Lower Intestinal Tract, Via Natural or Artificial Opening Endoscopic (ICD-10-PCS; 2018-12-17 13:30)
PROC: 0DJD8ZZ Inspection of Lower Intestinal Tract, Via Natural or Artificial Opening Endoscopic (ICD-10-PCS; 2018-12-19)
DX: D62 Acute posthemorrhagic anemia (principal); K29.41 Chronic atrophic gastritis with bleeding; K25.4 Chronic or unspecified gastric ulcer with hemorrhage; K29.81 Duodenitis with bleeding; K26.4 Chronic or unspecified duodenal ulcer with hemorrhage; R47.02 Dysphasia; F10.10 Alcohol abuse, uncomplicated; K20.9 Esophagitis, unspecified; K64.8 Other hemorrhoids; K64.4 Residual hemorrhoidal skin tags; K44.9 Diaphragmatic hernia without obstruction or gangrene; Z23 Encounter for immunization
CPT/HCPCS: 36415; 70450; 74250; 78278; 78290; 80048; 80053; 80076; 82274; 82607; 82746; 83540; 83690; 83735; 84100; 84466; 85014; 85018; 85025; 85044; 86850; 86900; 86901; 88305; 88312; 90471; 96361; 96365; 96375; 99285; A9512; A9560; C9113; J0171; J0696; J1642; J2001; J2704; J2765; J7030; J7120; P9016; Q2035

== ENCOUNTER 2021-01-21 10:46 | Day surgery (SDC) | payer BC ==
[2021-01-17 09:21] LABS: Absolute Lymphocytes (CBC) 1.7 K/uL (0.7-4.9); Hematocrit 38.5 % (39.6-49.0); Lymphocytes % 29.5 % (15.3-44.8); RBC Red Blood Cell Count 4.15 M/uL (4.33-5.43)
[2021-01-17 09:35] LABS: Protime INR 0.92
--- NOTE | 2021-01-17 10:38 | RAD REPORT ---
EXAM DESCRIPTION: Raven Solo (2 Views)01/17/2021 8:47 am CLINICAL HISTORY: Preop for cardiac catheterization COMPARISON: None FINDINGS: The lungs appear clear of acute infiltrate. The heart is normal size IMPRESSION: No acute abnormalities displayed
--- NOTE | 2021-01-18 20:40 | EKG ---
Test Date: 2021-01-17 Test Time: 08:33:30 Sales Representative [employer]: JESSE MEASUREMENT RESULTS: Intervals: Rate: 52 [place]: 192 QRSD: 154 QT: 496 QTc: 461 [place]: P: 83 [place]: 192 QRS: 78 T: -72 INTERPRETIVE STATEMENTS: Sinus bradycardia Left bundle branch block Abnormal ECG No previous ECG available for comparison Electronically Signed On 01-18-21 20:35:24 VASCULAR PHYSICIAN by Christopher rPeciado
[~2021-01-21 10:46] MED LIST: HEPA 1000U/500MLS 2,000 UNIT/1,000 ML BAG IV ONE; LIDOCAINE 1% 20 ML MDV ONE
[2021-01-21] MEDS ORDERED: NA CHLORIDE 0.9% 500 ML ONE (10:49)
[2021-01-21 11:22] VITALS: TEMP 98.1
[2021-01-21] MEDS ORDERED: LIDOCAINE 1% 20 ML MDV ONE (14:47)
[2021-01-21] MEDS ORDERED: MIDAZOLAM HCL 2 MG/2 ML INJ ONE (14:47)
[2021-01-21] MEDS ORDERED: HEPARIN 5000 UNIT/ML 1 ML VIAL ONE (14:48)
[2021-01-21] MEDS ORDERED: ATROPINE SULF 1 MG/10 ML SYR IV ONE (14:48)
[2021-01-21] MEDS ORDERED: VERAPAMIL HCL 10 MG/4 ML VIAL IV ONE (14:48)
[2021-01-21] MEDS ORDERED: NITROGLYCERIN 100 MCG/ML SYR (for cath lab use only) IV ONE (14:48)
[2021-01-21] MEDS ORDERED: FENTANYL CITR 100 MCG/2 ML ONE (14:48)
[2021-01-21 18:02] VITALS: BP 144/72; O2SAT 100
--- NOTE | 2021-01-22 02:26 | OP ---
Date of Procedure: 01/21/2021 Surgeon: VIC EDWARDS Procedure Performed: 1.Selective coronary angiogram. 2.Left heart catheterization. 3.Left ventriculogram. Indications: Low ejection fraction by echo. Access: Right radial artery 6-Macedonian closed with TR band. Complications: None. Bleeding: Minimal. Description Of Procedure: After risks, benefits, and alternatives were explained, patient agreed to proceed and signed informed consent. The patient was brought into the cardiac catheterization labora tory, prepped and draped in usual sterile fashion. We access right radial artery using pediatric mat ropuncture kit and placed a 6-Macedonian slender sheath and took a 5-Macedonian tiger 4.0 catheter into the a ortic root, engaged left main, right coronary artery, took standard views and then took a 6-Macedonian an gled pigtail catheter into the aortic root, across the aortic valve, recorded LVEDP and LV-gram was d one and pullback did not record any gradient. I removed the catheter and sheath, placed TR band with good hemostasis. Findings: 1.Left main is normal. 2.LAD; large size vessel with a mid to distal focal area of 30% stenosis. Rest of the vessel is nor mal. 3.Left circumflex is normal. 4.RCA; large dominant with mid 20% stenosis. 5.LVEDP normal at 6 mmHg. 6.LV EF is normal more than 65% with normal wall motion. Conclusion: 1.Mild nonobstructive coronary artery disease. 2.Normal ejection fraction and wall motion and LVEDP. Plan: Medical management. SR/MODL Voice ID: [id number] Report ID: [id number]
== END 2021-01-21 18:09 | disposition home or self-care (01) ==
LOC: CCL 10:46
PROVIDERS: ATTEND Internal Medicine
DX: I25.10 Atherosclerotic heart disease of native coronary artery without angina pectoris (principal); I44.7 Left bundle-branch block, unspecified; I10 Essential (primary) hypertension; E78.5 Hyperlipidemia, unspecified; Z20.822 Contact with and (suspected) exposure to COVID-19
CPT/HCPCS: 93005; 85025; 80048; 36415; 85610; 85730; 71046; 93458; U0003; C1893; J1644 ×2; J2250; J3010; J7040